=== PATIENT | male | born 1950 | race Caucasian/White ===

== ENCOUNTER 2021-07-30 19:39 | Observation (INO) ==
[2021-07-30] MEDS ORDERED: levoFLOXacin 750 MG/150 ML 750 MG/150 ML BAG IVPB STA (19:45)
[2021-07-30] MEDS ORDERED: 0.9 % Sodium Chloride 1,000 ML IV ONE (19:45)
[2021-07-30 20:34] LABS: Basophils % 0.2 %; Eosinophils # 0.1 K/mcL (0.0-0.6); Eosinophils % 1.4 %; Hematocrit 34.8 % (37.5-50.1); Immature Granulocytes % 0.2 % (0-4); Lymphocytes # 0.6 K/mcL (0.6-4.6); Lymphocytes % 12.8 %; Mean Corpuscular HGB Conc 28.7 g/dL (31.6-35.5); Mean Corpuscular Hemoglobin 26.7 pg (28.0-33.3); Mean Platelet Volume 11.4 fL (9.4-12.4); Monocytes # 0.2 K/mcL (0.0-1.3); Monocytes % 4.4 %; Neutrophils # 3.5 K/mcL (1.6-8.9); Red Blood Count 3.74 M/mcL (4.19-5.50); Red Cell Distribution Width 21.5 % (11.5-14.5); White Blood Count 4.4 K/mcL (4.3-11.1)
[2021-07-30 20:42] LABS: INR 1.5; Prothrombin Time 16.4 Seconds (9.4-12.1)
[2021-07-30 20:43] LABS: Platelet Count 85 K/mcL (140-400)
[2021-07-30 20:53] LABS: Albumin 2.9 g/dL (3.5-5.7); Albumin/Globulin Ratio 0.8 (1.1-2.2); Bilirubin,Total 0.9 mg/dL (0.3-1.0); Globulin 3.8 g/dL (2.4-3.5); Potassium 3.8 mEq/L (3.5-5.1); Total Protein 6.7 g/dL (6.4-8.9); Troponin I < 0.03 ng/mL (< 0.04)
[2021-07-30 20:54] LABS: Magnesium 2.2 mg/dL (1.6-2.6); Phosphorous 3.7 mg/dL (2.7-4.5)
[2021-07-30 20:54] LABS: Bilirubin,Urine Small (Negative); Blood,Urine Negative (Negative); Clarity,Urine Cloudy (Clear); Color,Urine Yellow (Yellow); Glucose,Urine (UA) Normal (Normal); Ketones,Urine Negative (Negative); Leukocyte Esterase,Urine Negative (Negative); Nitrite,Urine Negative (Negative); Protein,Urine 100 mg/dL (Neg-Trace); Urobilinogen,Urine Normal (Normal)
[2021-07-30 21:00] LABS: WBC,Urine 0-3 per hpf (0-3)
[2021-07-30 21:01] LABS: Amorphous Sediment,Urine Moderate per hpf (None-Few); Hyaline Casts,Urine Many per lpf (None Seen); Squamous Epithelial Cell,Urine None Seen per hpf (None-Few)
[2021-07-30 21:06] LABS: Anisocytosis 1+ (Not Present); Hypochromasia Present (Not Present); Platelet Estimate Decreased (Normal)
[2021-07-30] MEDS ORDERED: Furosemide 40 MG/4 ML VIAL IVP ONE (21:18)
[2021-07-31] MEDS ORDERED: D5% in Water 1,000 ML IVC SCH ×2 (01:45→02:58)
[2021-07-31] MEDS ORDERED: Acetaminophen 325 MG TABLET PO PRN (02:58)
[2021-07-31] MEDS ORDERED: Naloxone 0.4 MG/ML INJ IVP PRN (02:58)
[2021-07-31 03:12] VITALS: RESP 18
[2021-07-31] MEDS ORDERED: *HR* Dextrose 50 % in Water (Syg) 50 ML SYRINGE IVP PRN (04:57)
[2021-07-31] MEDS ORDERED: Dextrose Gel 15 GM/37.5 ML TUBE PO PRN ×2 (04:57)
[2021-07-31] MEDS ORDERED: D10% in Water 500 ML IVC SCH (05:00)
[2021-07-31] MEDS ORDERED: *HR* LORazepam 2 MG/ML VIAL IVP ONE (05:19)
[2021-07-31] MEDS ORDERED: Insulin LISPRO 300 UNITS/3 ML VIAL SUBQ SCH (06:00)
[2021-07-31] MEDS ORDERED: *HR* LORazepam 1 MG TABLET SL PRN (07:45)
[2021-07-31] MEDS ORDERED: Morphine Sulfate Oral CONC 10 MG/0.5 ML ORAL.SYG SL PRN ×2 (07:48→08:00)
[2021-07-31] MEDS ORDERED: Cefepime HCl 1,000 MG in 0.9 % Sodium Chloride Mini Bag 100 ML IVPB SCH (08:00)
[2021-07-31] MEDS ORDERED: *HR* LORazepam Oral Conc 2 MG/ML SL PRN (08:15)
[2021-07-31] MEDS ORDERED: Furosemide 40 MG/4 ML VIAL IVP SCH ×3 (09:00→10:00)
[2021-07-31] MEDS ORDERED: Metoprolol XL (24 HR) Succ 50 MG TAB.ER.24H PO SCH (09:00)
[2021-07-31] MEDS ORDERED: Albumin Human 5% 12.5 GM/250 ML IV.SOLN IVPB ONE (09:12)
[2021-07-31 11:22] VITALS: BP 82/55; PULSE 59; TEMP 97.8
[2021-07-31 12:27] VITALS: O2SAT 84
[2021-07-31] MEDS ORDERED: Insulin DETEMIR 100 UNIT/ML X5UNITS SUBQ SCH (21:00)
[2021-07-31] MEDS ORDERED: QUEtiapine Fumarate 25 MG TABLET PO SCH (21:00)
== END 2021-07-31 15:35 | disposition hospice, inpatient (51) ==
LOC: EMEROOPIK 19:39 → INPPIK 19:39
PROVIDERS: ADMIT Internal Medicine; ATTEND Internal Medicine

== ENCOUNTER 2021-07-31 14:14 | Inpatient (IN) ==
[2021-07-31] MEDS ORDERED: haloperidoL 1 MG TABLET PO PRN (15:03)
[2021-07-31] MEDS ORDERED: Ondansetron 4 MG/2 ML VIAL IVP PRN (15:03)
[2021-07-31] MEDS ORDERED: Morphine Sulfate 2 MG/ML SYRINGE IVP PRN (15:03)
[2021-07-31] MEDS ORDERED: *HR* LORazepam 0.5 MG TABLET PO PRN (15:03)
[2021-07-31] MEDS ORDERED: *HR* LORazepam 0.5 MG TABLET SL PRN (16:06)
[2021-07-31] MEDS: Scopolamine Patch 1.5 MG PATCH.TD72 TD SCH (16:13)
[2021-07-31] MEDS: Furosemide 20 MG/2 ML VIAL IVP SCH (16:13)
[2021-08-01] MEDS: Morphine Sulfate Oral CONC 10 MG/0.5 ML ORAL.SYG SL PRN ×2 (03:37→12:30)
[2021-08-01] MEDS: Furosemide 20 MG/2 ML VIAL IVP SCH (07:37)
[2021-08-01] MEDS: *HR* LORazepam Oral Conc 2 MG/ML SL PRN (12:29)
[2021-08-01] MEDS ORDERED: Haloperidol Oral Conc 10 MG/5 ML UDC PO PRN (14:45)
[2021-08-01] MEDS ORDERED: Ondansetron ODT 4 MG TAB.RAPDIS SL PRN (14:47)
[2021-08-02] MEDS: Morphine Sulfate Oral CONC 10 MG/0.5 ML ORAL.SYG SL PRN (07:47)
[2021-08-02 10:18] LABS: Basophils % 0.3 %; Eosinophils # 0.1 K/mcL (0.0-0.6); Eosinophils % 2.1 %; Hematocrit 32.8 % (37.5-50.1); Hemoglobin 9.5 g/dL (12.9-16.9); Immature Granulocytes % 0.5 % (0-4); Lymphocytes # 0.6 K/mcL (0.6-4.6); Lymphocytes % 9.7 %; Mean Corpuscular Hemoglobin 27.3 pg (28.0-33.3); Mean Corpuscular Volume 94.3 fL (83.0-100.0); Monocytes # 0.3 K/mcL (0.0-1.3); Monocytes % 4.5 %; Neutrophils # 4.8 K/mcL (1.6-8.9); Red Blood Count 3.48 M/mcL (4.19-5.50); Red Cell Distribution Width 21.3 % (11.5-14.5); Segmented Neutrophils % 82.9 %; White Blood Count 5.8 K/mcL (4.3-11.1)
[2021-08-02 10:19] LABS: Platelet Count 69 K/mcL (140-400)
[2021-08-02] MEDS ORDERED: *HR* Dextrose 50 % in Water (Vial) 50 ML VIAL ONE (10:33)
[2021-08-02] MEDS ORDERED: D5% in Water 1,000 ML IVC ONE (10:34)
[2021-08-02] MEDS ORDERED: *HR* Dextrose 50 % in Water (Vial) 50 ML VIAL IVP ONE (10:34)
[2021-08-02 10:51] LABS: Calcium 9.5 mg/dL (8.6-10.3); Magnesium 2.2 mg/dL (1.6-2.6); Potassium 4.2 mEq/L (3.5-5.1)
[2021-08-02] MEDS: Furosemide 20 MG/2 ML VIAL IVP SCH ×2 (11:27→22:05)
[2021-08-02] MEDS: D5% in Water 1,000 ML IVC SCH ×2 (11:30→22:12)
[2021-08-02] MEDS ORDERED: *HR* Dextrose 50 % in Water (Syg) 50 ML SYRINGE IVP PRN (15:57)
[2021-08-02] MEDS ORDERED: Dextrose Gel 15 GM/37.5 ML TUBE PO PRN ×2 (15:57)
[2021-08-02] MEDS ORDERED: D5% in Water 1,000 ML IVC PRN (15:57)
[2021-08-02] MEDS: Insulin LISPRO 300 UNITS/3 ML VIAL SUBQ SCH (18:16)
[2021-08-02] MEDS: *HR* Heparin 5,000 UNIT/ML VIAL SQ SCH ×2 (18:28→21:59)
[2021-08-03] MEDS: Insulin LISPRO 300 UNITS/3 ML VIAL SUBQ SCH ×3 (00:13→13:38)
[2021-08-03] MEDS: *HR* Heparin 5,000 UNIT/ML VIAL SQ SCH ×2 (06:21→20:50)
[2021-08-03] MEDS: D5% in Water 1,000 ML IVC SCH (06:21)
[2021-08-03 07:07] LABS: Basophils % 0.3 %; Eosinophils % 0.3 %; Hematocrit 37.2 % (37.5-50.1); Hemoglobin 10.2 g/dL (12.9-16.9); Immature Granulocytes % 0.5 % (0-4); Lymphocytes # 0.5 K/mcL (0.6-4.6); Lymphocytes % 7.4 %; Mean Corpuscular HGB Conc 27.4 g/dL (31.6-35.5); Mean Corpuscular Hemoglobin 27.3 pg (28.0-33.3); Mean Corpuscular Volume 99.7 fL (83.0-100.0); Monocytes # 0.3 K/mcL (0.0-1.3); Monocytes % 4.9 %; Neutrophils # 5.7 K/mcL (1.6-8.9); Red Blood Count 3.73 M/mcL (4.19-5.50); Red Cell Distribution Width 21.4 % (11.5-14.5); Segmented Neutrophils % 86.6 %; White Blood Count 6.6 K/mcL (4.3-11.1)
[2021-08-03 07:13] LABS: Platelet Count 77 K/mcL (140-400)
[2021-08-03 07:24] LABS: Calcium 9.4 mg/dL (8.6-10.3); Magnesium 2.3 mg/dL (1.6-2.6); Potassium 4.3 mEq/L (3.5-5.1)
[2021-08-03 08:48] LABS: Anisocytosis 1+ (Not Present); Hypochromasia Present (Not Present); Ovalocytes 1+ (Not Present); Platelet Estimate Decreased (Normal)
[2021-08-03 08:49] LABS: Macrocytosis Present (Not Present)
[2021-08-03] MEDS: Furosemide 20 MG/2 ML VIAL IVP SCH ×2 (09:39→21:17)
[2021-08-03] MEDS: Morphine Sulfate Oral CONC 10 MG/0.5 ML ORAL.SYG SL PRN ×2 (10:58→13:19)
[2021-08-03] MEDS: Atropine Sulfate 1% 40 DROP/2 ML BOTTLE SL PRN (10:58)
[2021-08-03] MEDS: *HR* LORazepam Oral Conc 2 MG/ML SL PRN (11:55)
[2021-08-03] MEDS ORDERED: Haloperidol Lactate 5 MG/ML VIAL IVP PRN (14:01)
[2021-08-03] MEDS: Morphine Sulfate 2 MG/ML SYRINGE IVP PRN (14:50)
[2021-08-03] MEDS: *HR* LORazepam 2 MG/ML VIAL IVP PRN (16:27)
[2021-08-03] MEDS: Scopolamine Patch 1.5 MG PATCH.TD72 TD SCH (16:31)
[2021-08-04] MEDS: Furosemide 20 MG/2 ML VIAL IVP SCH ×2 (09:23→21:33)
[2021-08-04 20:01] VITALS: TEMP 97.7
[2021-08-04] MEDS ORDERED: Morphine Sulfate Oral CONC 10 MG/0.5 ML ORAL.SYG SL PRN (21:35)
[2021-08-04] MEDS ORDERED: *HR* LORazepam Oral Conc 2 MG/ML SL PRN (21:36)
[2021-08-05 00:31] VITALS: BP 94/62; PULSE 78; RESP 8; O2SAT 95
[2021-08-05] MEDS: *HR* LORazepam 2 MG/ML VIAL IVP PRN ×3 (00:36→08:23)
[2021-08-05] MEDS ORDERED: *HR* Dextrose 50 % in Water (Syg) 50 ML SYRINGE IVP ONE (01:43)
[2021-08-05] MEDS: Morphine Sulfate 2 MG/ML SYRINGE IVP PRN ×2 (01:58→08:25)
[2021-08-05] MEDS: Atropine Sulfate 1% 40 DROP/2 ML BOTTLE SL PRN (08:23)
== END 2021-08-05 12:46 | disposition expired | DRG 291 ==
LOC: INPPIK 15:37
PROVIDERS: ADMIT Internal Medicine; ATTEND Internal Medicine